=== PATIENT | female | born 1965 | race Caucasian/White ===

== ENCOUNTER 2024-05-27 07:19 | Day surgery (SDC) | payer MEDICARE, OTHER ==
[~2024-05-27] VITALS: Ht 165.1 cm; Wt 55.0 kg
[~2024-05-27 07:19] MED LIST: AZEL137S8 NASAL; DOXY100C61 PO; DULO-113 PO; FLUT1BLS3 IH; MONT-40 PO; PROM473S6 PO; QUET25TA36 PO; SODIUM CHLORIDE 0.9% 1,000 ML ONE
[2024-05-27] MEDS ORDERED: ALBUTEROL SULFATE 2.5 MG/0.5 ML NEB SOLUTION NEB ONE (07:20)
[2024-05-27] MEDS ORDERED: BENZOCAINE 20% 50 MCG/SPRAY 57 GM TP ONE (07:20)
[2024-05-27] MEDS ORDERED: LIDOCAINE 4% 50 ML SOLUTION TP ONE (07:20)
[2024-05-27] MEDS ORDERED: LIDOCAINE 2% 11 ML JELLY TP ONE (07:20)
[2024-05-27] MEDS ORDERED: MIDAZOLAM HCL 2 MG/2 ML VIAL ONE ×2 (08:15)
[2024-05-27] MEDS: SODIUM CHLORIDE 0.9% 1,000 ML IV ONE (08:46)
[2024-05-27 10:20] VITALS: PULSE 72; RESP 16; O2SAT 100
[2024-05-27] MEDS ORDERED: MethylPREDNISolone SOD SUCC 125 MG/2 ML VIAL ONE (10:53)
[2024-05-27] MEDS: MethylPREDNISolone SOD SUCC 125 MG/2 ML VIAL IVP ONE (10:55)
[2024-05-27] MEDS ORDERED: FentaNYL CITRATE PF 100 MCG/2 ML VIAL ONE (11:28)
== END 2024-05-27 12:45 | disposition home or self-care (01) ==
LOC: SURGERY 07:19
PROVIDERS: ATTEND Internal Medicine Critical Care Medicine
DX: J38.4 Edema of larynx (principal); B37.0 Candidal stomatitis; D64.9 Anemia, unspecified; J44.9 Chronic obstructive pulmonary disease, unspecified; Z90.710 Acquired absence of both cervix and uterus; Z98.890 Other specified postprocedural states; Z87.01 Personal history of pneumonia (recurrent)
CPT/HCPCS: 31623; 87206; 87101; 87220; 87070; 88108; 31624; 94640; 71045; 87015; J3010; J2250; J2919; J7030; J7613; Z7610